=== PATIENT | female | born 1995 | race Caucasian/White ===

== ENCOUNTER → 2024-08-31 | Outpatient (CLI) | payer BC | LOC: LAB 16:05 | DX: E66.09 Other obesity due to excess calories (principal) ==

== ENCOUNTER → 2025-03-09 | Outpatient (CLI) | payer BC ==
[~2025-03-09] MED LIST: MACROBID 100 M100 MG PO
[2025-03-09 09:27] LABS: ALBUMIN 3.9 g/dL (3.5-5.0)
[2025-03-09 09:28] LABS: CALCIUM 8.8 mg/dL (8.3-10.5)
[2025-03-09 09:31] LABS: TOTAL BILIRUBIN 0.3 mg/dL (0.2-1.2)
== END ==
LOC: LAB 09:07
PROVIDERS: Family Medicine
DX: R60.0 Localized edema (principal)